=== PATIENT | male | born 1995 | race Caucasian/White ===

== ENCOUNTER 2018-11-12 08:22 | Emergency (ER) | payer SELFPAY ==
[2018-11-12] MEDS ORDERED: Ibuprofen 800 MG TAB ONE (09:14)
[2018-11-12] MEDS ORDERED: Acetaminophen 500 MG TAB ONE (09:14)
== END 2018-11-12 09:22 | disposition home or self-care (01) ==
LOC: ERS 08:22
DX: H92.02 Otalgia, left ear (principal); F17.210 Nicotine dependence, cigarettes, uncomplicated
CPT/HCPCS: 99282